=== PATIENT | male | born 1980 | race Two or more races ===

== ENCOUNTER 2020-09-25 17:20 | Emergency (ER) | payer SELFPAY ==
[~2020-09-25] VITALS: Ht 170.2 cm; Wt 165.0 kg
[2020-09-25] MEDS ORDERED: LIDOcaine 1% W/epiNEPHrine 1:200,000 10ml vial IJ ONE ×2 (17:40→18:05)
[2020-09-25] MEDS ORDERED: TETanus/Pertussis (Acell)/Diphther VAC/PF (Tdap-Adult) 0.5ml syringe IMVAC ONE (17:40)
[2020-09-25] MEDS ORDERED: amox tr/potassium clavulanate 875/125mg TAB PO ONE (18:55)
[2020-09-25] MEDS ORDERED: AMOX-422 PO (18:57)
[2020-09-25 19:09] VITALS: BP 101/65
== END 2020-09-25 19:11 ==
LOC: ER 17:21
DX: S81.812A Laceration without foreign body, left lower leg, initial encounter (principal); Z20.3 Contact with and (suspected) exposure to rabies; Z98.890 Other specified postprocedural states; Z79.2 Long term (current) use of antibiotics; W57.XXXA Bitten or stung by nonvenomous insect and other nonvenomous arthropods, initial encounter; Y93.89 Activity, other specified; Y92.89 Other specified places as the place of occurrence of the external cause; Y99.8 Other external cause status
CPT/HCPCS: 12005; 73590; 90471; 90715; 99283; 99284